=== PATIENT | female | born 1965 | race Two or more races ===

== ENCOUNTER 2017-06-27 07:51 | Day surgery (SDC) | payer OTHER ==
[2017-06-23 13:02] VITALS: BMI 48.2
[2017-06-27] MEDS ORDERED: BUPIVACAINE HCL/PF 2.5 MG/ML - 30 ML VIAL IJ ONE (08:36)
[2017-06-27] MEDS ORDERED: EPINEPHrine 1:1,000 1 MG/1 ML - 30ML VIAL (INJECTION) ONE (08:37)
[2017-06-27] MEDS ORDERED: SUCCINYLCHOLINE CHLORIDE 200 MG/10 ML VIAL ONE (09:50)
[2017-06-27] MEDS ORDERED: MIDAZOLAM HCL 2 MG/2 ML SINGLE DOSE VIAL ONE (09:50)
[2017-06-27] MEDS ORDERED: PROPOFOL 20 ML ONE ×5 (09:50→10:29)
[2017-06-27] MEDS ORDERED: ONDANSETRON 4 MG/2 ML VIAL ONE ×2 (09:53→11:02)
[2017-06-27] MEDS ORDERED: KETOROLAC TROMETHAMINE 30 MG/1 ML VIAL ONE (09:53)
[2017-06-27] MEDS ORDERED: LIDOCAINE HCL/PF 2% SDV 5ML VIAL ONE (09:53)
[2017-06-27] MEDS ORDERED: ceFAZolin SODIUM 1 GM VIAL ONE (09:53)
[2017-06-27] MEDS ORDERED: DEXAMETHASONE SOD PHOSPHATE 4 MG/1 ML VIAL ONE (09:53)
[2017-06-27] MEDS ORDERED: BUPIVACAINE HCL/PF 0.25% (2.5MG/ML) 10 ML VIAL IJ ONE (10:36)
[2017-06-27] MEDS ORDERED: ONDANSETRON 4 MG/2 ML VIAL IVPUSH ONE (10:55)
[2017-06-27] MEDS ORDERED: ONDANSETRON 4 MG/2 ML VIAL IVPUSH PRN (11:00)
[2017-06-27] MEDS ORDERED: PROMETHAZINE HCL 25 MG/1 ML VIAL IVPUSH PRN (11:00)
[2017-06-27] MEDS ORDERED: oxyCODONE HCL 5 MG TABLET PO PRN ×2 (11:00)
[2017-06-27] MEDS ORDERED: LACTATED RINGERS SOLUTION 1,000 ML IV SCH (11:00)
[2017-06-27] MEDS ORDERED: oxyCODONE HCL 5 MG TABLET ONE (12:17)
[2017-06-27 18:19] VITALS: TEMP 97.9
[2017-06-27 18:26] VITALS: BP 134/72; PULSE 72
--- NOTE | 2017-06-29 23:56 | OP ---
DATE OF OPERATION: 06/27/2017 SURGEON: Sharath Kee MD [employer]CH[employer] SERVICES REP: CLAYTON Meek PREOPERATIVE DIAGNOSIS: 1. Right knee mediolateral meniscus tear. 2. Right knee cartilage injury. 3. Right knee synovitis. POSTOPERATIVE DIAGNOSIS: 1. Right knee mediolateral meniscus tear. 2. Right knee cartilage injury. 3. Right knee synovitis. PROCEDURE: 1. Right knee arthroscopy with partial meniscectomy of medial and lateral meniscus. 2. Right knee arthroscopy with chondroplasty and abrasioplasty. 3. Right knee arthroscopy with synovectomy/medial plica removal. FINDINGS: 1. Medial meniscus body and posterior horn tear. 2. Lateral posterior horn tear. 3. Synovitis of patellofemoral and mediolateral notch area including medial plica. 4. Central grade 2 cartilage injury of medial femoral condyle and tibial plateau. 5. ACL and PCL intact. 6. Antegrade 2 cartilage injury of the lateral tibial plateau. 7. Central grade 2-3 cartilage injury of the patellofemoral trochlea and antegrade 4 changes of the patellofemoral trochlea and patellofemoral joint. PROCEDURE: Informed consent was obtained. The patient was taken to the operating room where the right lower extremity was prepped and draped in a sterile fashion. A tourniquet was placed on the right upper thigh but not inflated. Using standard arthroscopic technique, a lateral incision and portal were made which allowed for introduction of the camera into the suprapatellar bursa. This was then taken to the medial joint line where under direct visualization, a medial incision and portal were made. Excessive synovium noted in the medial, lateral, patellofemoral and notch area was removed by the up-biting shaver and Bovie cautery. This was found to bring inflammatory tissue into the joint surface, a source of joint pain and dysfunction. Probing of the medial and lateral meniscus found tears described in the findings. These were removed with an up-biting shaver and taken back to a stable rim. Grade 2-3 degenerative changes were treated with chondroplasty, removing all flaking surfaces with low setting Bovie used along the periphery. Grade 4 changes were treated with abrasion-plasty. All areas of the knee were once again re-examined. The knee was then drained. A single suture was placed on all portals. Sterile dressing was placed. The patient was transferred to the recovery room. SHARATH KEE M.D. [id number]
--- NOTE | 2017-07-04 14:11 | PATH ---
Surgical Pathology Report Patient Name: MATT THACKER [facility]. Rec. #: [id number] /Age/Gender: 1965 (Age: 52) / F Account: [id number] Location: [facility] Taken: 06/27/2017 Received: 06/27/2017 Reported: 07/04/2017 Physicians: Joe Jaime M.D. Specimen(s) Received RIGHT KNEE SHAVINGS Clinical History Right knee internal derangement Final Diagnosis KNEE, RIGHT, ARTHROSCOPIC SHAVINGS: FIBROSYNOVIAL TISSUE AND CARTILAGE. Electronically Signed Zeina Whyte M.D. Gross Description Received in formalin, labeled "right knee shavings," is a 3.3 x 2.5 x 0.3 cm. aggregate of bains-yellow soft tissue fragments. A customer contact representative portion is submitted in one cassette. 06/30/201706/30/2017
== END 2017-06-27 13:50 | disposition home or self-care (01) ==
LOC: FASU 07:51
PROVIDERS: ATTEND Orthopaedic Surgery
PROC: 0SBC4ZZ Excision of Right Knee Joint, Percutaneous Endoscopic Approach (ICD-10-PCS; 2017-06-27)
PROC: 0SBC4ZZ Excision of Right Knee Joint, Percutaneous Endoscopic Approach (ICD-10-PCS; 2017-06-27)
PROC: 0SBC4ZZ Excision of Right Knee Joint, Percutaneous Endoscopic Approach (ICD-10-PCS; principal; 2017-06-27 09:58)
DX: S83.241A Other tear of medial meniscus, current injury, right knee, initial encounter (principal); S83.281A Other tear of lateral meniscus, current injury, right knee, initial encounter; S83.8X1A Sprain of other specified parts of right knee, initial encounter; M65.861 Other synovitis and tenosynovitis, right lower leg; X58.XXXA Exposure to other specified factors, initial encounter; Y93.9 Activity, unspecified; Y92.9 Unspecified place or not applicable
CPT/HCPCS: 88304-TC; 94760